=== PATIENT | male | born 1990 | race Caucasian/White ===

== ENCOUNTER 2018-03-29 18:26 | Emergency (ER) | payer OTHER ==
[~2018-03-29] VITALS: Ht 157.4 cm; Wt 74.8 kg
[2018-03-29] MEDS ORDERED: NAPROSYN500 MG PO (18:34)
== END 2018-03-29 20:15 | disposition home or self-care (01) ==
LOC: ED 18:26
DX: S93.402A Sprain of unspecified ligament of left ankle, initial encounter (principal); R03.0 Elevated blood-pressure reading, without diagnosis of hypertension; X50.1XXA Overexertion from prolonged static or awkward postures, initial encounter; Y93.89 Activity, other specified; Y92.89 Other specified places as the place of occurrence of the external cause; Y99.8 Other external cause status

== ENCOUNTER 2018-04-13 13:50 | Emergency (ER) | payer MEDICAID ==
[~2018-04-13] VITALS: Ht 157.4 cm; Wt 74.8 kg
[~2018-04-13 13:50] MED LIST: NAPROSYN500 MG PO
[2018-04-13 15:34] LABS: BILIRUBIN NEGATIVE (NEGATIVE); BLOOD NEGATIVE (NEGATIVE); CLARITY CLEAR (CLEAR); COLOR YELLOW (YELLOW); GLUCOSE NEGATIVE (NEGATIVE); KETONE NEGATIVE (NEGATIVE); LEUKO ESTERASE NEGATIVE (NEGATIVE); NITRITE NEGATIVE (NEGATIVE); PH 5.5 (5.0-9.0); SPECIFIC GRAVITY 1.025 (1.005-1.030); UROBILINOGEN 0.2 E.U./dl (0.2-1.0)
[2018-04-13 15:44] LABS: MUCOUS TRACE; RBC 0-2 rbc/hpf (0-2); URINE AMPHETAMINES < 1000 (1000ng/ml); URINE BARBITURATES < 200 (200ng/ml); URINE BENZODIAZEPINES < 200 (200ng/ml); URINE CANNABINOIDS (THC) > 50 (50ng/ml); URINE COCAINE < 300 (300ng/ml); URINE METHADONE < 300 (300ng/ml); URINE OPIATES < 300 (300ng/ml)
[2018-04-13 15:58] LABS: URINE PHENCYCLIDINE < 25 (25ng/ml)
== END 2018-04-13 15:59 | disposition home or self-care (01) ==
LOC: ED 13:50
PROVIDERS: Emergency Medicine
DX: F32.9 Major depressive disorder, single episode, unspecified (principal)

== ENCOUNTER 2022-12-13 20:36 | Emergency (ER) | payer OTHER ==
[~2022-12-13] VITALS: Ht 157.4 cm; Wt 81.6 kg
[2022-12-13 22:29] LABS: BASO # 0.1 10*3/uL (0.0-0.1); BASO % 0.5 % (0.0-1.0); EOS # 0.2 10*3/uL (0.0-0.4); EOS % 2.2 % (1.0-4.0); HEMATOCRIT 48.2 % (42.0-52.0); LYMPH # 4.2 10*3/uL (1.3-4.4); LYMPH % 45.8 % (27.0-41.0); MEAN CELL VOLUME 86.7 fl (80.0-94.0); MEAN CORPUSCULAR HGB 29.3 pg (27.0-31.0); MEAN CORPUSCULAR HGB CONC 33.8 g/dl (33.0-37.0); MEAN PLATELET VOLUME 8.8 fl (9.6-12.3); MONO # 0.8 10*3/uL (0.1-1.0); MONO % 8.7 % (3.0-9.0); NEUT # 3.9 10*3/uL (2.3-7.9); NEUT % 42.4 % (47.0-73.0); PLATELET COUNT AUTOMATED 199 10*3/uL (130-400); RED BLOOD COUNT 5.56 10*6/uL (4.50-5.90); RED CELL DISTRI WIDTH 13.2 % (0-14.5); WHITE BLOOD COUNT 9.1 10*3/uL (4.8-10.8)
[2022-12-13 23:00] LABS: ALKALINE PHOSPHATASE 58 U/L (46-116); BUN 11 mg/dl (9-23); CHLORIDE 104 mmol/L (98-107); POTASSIUM 3.6 mmol/L (3.4-5.1); SGPT/ALT 48 U/L (10-49); TOTAL PROTEIN 6.8 gm/dL (6.0-8.0)
== END 2022-12-14 01:33 | disposition home or self-care (01) ==
LOC: ED 20:36
PROVIDERS: Emergency Medicine
DX: R07.9 Chest pain, unspecified (principal); I10 Essential (primary) hypertension

== ENCOUNTER 2023-05-04 17:57 | Emergency (ER) | payer OTHER ==
[~2023-05-04] VITALS: Ht 157.4 cm; Wt 81.6 kg
[2023-05-04] MEDS ORDERED: ARIPIPRAZOLE10 MG PO (18:39)
[2023-05-04] MEDS ORDERED: AMLODIPINE BESYL5 MG PO (18:39)
[2023-05-04] MEDS ORDERED: NAPROXEN250 MG PO (20:26)
== END 2023-05-04 20:44 | disposition home or self-care (01) ==
LOC: ED 17:57
DX: S93.401D Sprain of unspecified ligament of right ankle, subsequent encounter (principal); S93.601D Unspecified sprain of right foot, subsequent encounter; X50.1XXD Overexertion from prolonged static or awkward postures, subsequent encounter

== ENCOUNTER 2023-07-15 04:13 | Emergency (ER) | payer SELFPAY ==
[~2023-07-15] VITALS: Ht 157.4 cm; Wt 81.6 kg
[~2023-07-15 04:13] MED LIST changes: +AMLODIPINE BESYL5 MG PO; +ARIPIPRAZOLE10 MG PO; +NAPROXEN250 MG PO
== END 2023-07-15 07:20 | disposition home or self-care (01) ==
LOC: ED 04:13
DX: S20.212A Contusion of left front wall of thorax, initial encounter (principal); I10 Essential (primary) hypertension; F31.9 Bipolar disorder, unspecified; Z87.891 Personal history of nicotine dependence; X50.1XXA Overexertion from prolonged static or awkward postures, initial encounter; Y93.89 Activity, other specified; Y92.009 Unspecified place in unspecified non-institutional (private) residence as the place of occurrence of the external cause; Y99.8 Other external cause status

== ENCOUNTER 2024-04-30 18:22 | Emergency (ER) | payer SELFPAY ==
[~2024-04-30] VITALS: Ht 157.4 cm; Wt 71.7 kg
[2024-04-30] MEDS ORDERED: Ondansetron Hydrochloride 4 MG/2 ML VIAL IV ONE (18:30)
[2024-04-30] MEDS ORDERED: Ondansetron Hydrochloride 4 MG TAB SL ONE (18:30)
[2024-04-30 18:38] LABS: BASO % 0.4 % (0.0-1.0); EOS # 0.1 10*3/uL (0.0-0.4); EOS % 0.8 % (1.0-4.0); HEMATOCRIT 48.3 % (42.0-52.0); LYMPH % 39.9 % (27.0-41.0); MEAN CELL VOLUME 89.1 fl (80.0-94.0); MEAN CORPUSCULAR HGB 29.7 pg (27.0-31.0); MEAN CORPUSCULAR HGB CONC 33.3 g/dl (33.0-37.0); MEAN PLATELET VOLUME 8.9 fl (9.6-12.3); MONO # 0.7 10*3/uL (0.1-1.0); MONO % 9.3 % (3.0-9.0); NEUT # 3.7 10*3/uL (2.3-7.9); NEUT % 49.2 % (47.0-73.0); PLATELET COUNT AUTOMATED 190 10*3/uL (130-400); RED BLOOD COUNT 5.42 10*6/uL (4.50-5.90); RED CELL DISTRI WIDTH 13.3 % (0-14.5); WHITE BLOOD COUNT 7.4 10*3/uL (4.8-10.8)
[2024-04-30 18:52] LABS: BUN 18 mg/dl (9-23); CHLORIDE 104 mmol/L (98-107); POTASSIUM 3.9 mmol/L (3.4-5.1)
[2024-04-30] MEDS ORDERED: Ondansetron4 MG PO (19:22)
== END 2024-04-30 19:31 | disposition home or self-care (01) ==
LOC: ED 18:22
PROVIDERS: Nurse Practitioner Family
DX: I10 Essential (primary) hypertension (principal); R11.2 Nausea with vomiting, unspecified; J45.909 Unspecified asthma, uncomplicated; F31.9 Bipolar disorder, unspecified; Z79.899 Other long term (current) drug therapy

== ENCOUNTER 2024-05-26 21:43 | Emergency (ER) | payer MEDICAID ==
[~2024-05-26] VITALS: Ht 157.4 cm; Wt 75.7 kg
[~2024-05-26 21:43] MED LIST changes: +Ondansetron4 MG PO
[2024-05-26 22:42] LABS: BASO # 0.1 10*3/uL (0.0-0.1); BASO % 0.5 % (0.0-1.0); EOS # 0.1 10*3/uL (0.0-0.4); EOS % 1.3 % (1.0-4.0); HEMATOCRIT 52.8 % (42.0-52.0); LYMPH # 4.4 10*3/uL (1.3-4.4); LYMPH % 41.2 % (27.0-41.0); MEAN CELL VOLUME 88.1 fl (80.0-94.0); MEAN CORPUSCULAR HGB 29.7 pg (27.0-31.0); MEAN CORPUSCULAR HGB CONC 33.7 g/dl (33.0-37.0); MEAN PLATELET VOLUME 8.9 fl (9.6-12.3); MONO # 0.8 10*3/uL (0.1-1.0); MONO % 7.8 % (3.0-9.0); NEUT # 5.2 10*3/uL (2.3-7.9); NEUT % 48.4 % (47.0-73.0); PLATELET COUNT AUTOMATED 246 10*3/uL (130-400); RED BLOOD COUNT 5.99 10*6/uL (4.50-5.90); RED CELL DISTRI WIDTH 13.4 % (0-14.5); WHITE BLOOD COUNT 10.6 10*3/uL (4.8-10.8)
[2024-05-26 22:58] LABS: ACT PARTIAL THROMBO TIME 31.6 SECONDS (20.0-32.1)
[2024-05-26 23:03] LABS: ALKALINE PHOSPHATASE 74 U/L (46-116); BUN 14 mg/dl (9-23); CHLORIDE 99 mmol/L (98-107); POTASSIUM 3.8 mmol/L (3.4-5.1); SGPT/ALT 24 U/L (5-49); TOTAL PROTEIN 7.8 gm/dL (6.0-8.0)
== END 2024-05-27 03:40 | disposition home or self-care (01) ==
LOC: ED 21:43
PROVIDERS: Emergency Medicine
DX: R07.89 Other chest pain (principal); I10 Essential (primary) hypertension; J45.909 Unspecified asthma, uncomplicated; F31.9 Bipolar disorder, unspecified

== ENCOUNTER 2024-12-20 08:27 | Emergency (ER) | payer OTHER ==
[~2024-12-20] VITALS: Ht 157.4 cm; Wt 81.6 kg
[2024-12-20] MEDS ORDERED: MELOXICAM15 MG PO (09:11)
== END 2024-12-20 09:37 | disposition home or self-care (01) ==
LOC: ED 08:27
DX: M25.511 Pain in right shoulder (principal); Z79.899 Other long term (current) drug therapy